=== PATIENT | male | born 1995 | race Caucasian/White ===

== ENCOUNTER 2021-01-07 20:55 | Emergency (ER) | payer OTHER ==
[~2021-01-07] VITALS: Ht 172.7 cm; Wt 91.6 kg
[2021-01-07] MEDS ORDERED: ESKALITH CR450 MG PO (21:13)
[2021-01-07] MEDS ORDERED: RISPERDAL2 MG PO (21:15)
[2021-01-07] MEDS ORDERED: INDERAL LA120 M1 PO (21:15)
[2021-01-07] MEDS ORDERED: TOPAMAX100 MG PO (21:16)
[2021-01-07] MEDS ORDERED: BUSPIRONE HCL10 MG PO (21:16)
[2021-01-07] MEDS ORDERED: SEROQUEL 25 MG25 MG PO (21:17)
[2021-01-07] MEDS ORDERED: VITAMIN D3100 MCG PO (21:18)
[2021-01-07] MEDS ORDERED: BUPROPION XL300 MG PO (21:19)
[2021-01-07] MEDS ORDERED: LITHIUM CARBON300 M3 PO (21:20)
[2021-01-07] MEDS ORDERED: FAMOTIDINE 40 M40 M1 PO (21:20)
[2021-01-07] MEDS ORDERED: OLANZAPINE10 M1 IM (21:21)
[2021-01-07 22:24] VITALS: BP 143/77
== END 2021-01-08 00:12 | disposition home or self-care (01) ==
LOC: ER 20:55
DX: S00.83XA Contusion of other part of head, initial encounter (principal); F17.210 Nicotine dependence, cigarettes, uncomplicated; Z79.899 Other long term (current) drug therapy; Z88.8 Allergy status to other drugs, medicaments and biological substances; Y04.2XXA Assault by strike against or bumped into by another person, initial encounter; Y93.89 Activity, other specified; Y92.89 Other specified places as the place of occurrence of the external cause; Y99.8 Other external cause status